=== PATIENT | male | born 1995 | race Caucasian/White ===

== ENCOUNTER 2019-06-24 15:11 | Emergency (ER) | payer OTHER ==
[~2019-06-24] VITALS: Ht 172.7 cm; Wt 69.8 kg
[~2019-06-24 15:11] MED LIST: CENTANY30 GM TP
[2019-06-24 16:12] LABS: INFLUENZA A ANTIGEN Negative (Negative); INFLUENZA B ANTIGEN Negative (Negative)
[2019-06-24] MEDS ORDERED: MEDROLDOSEPACK PO (16:39)
[2019-06-24 16:53] VITALS: BP 106/49
--- NOTE | 2019-06-26 13:58 | EKG ---
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: : 1995 Requested By: Aneta Sequeira Order Number: [id number] Chastity MD: Dago Dunham Measurements Intervals [place] Rate: 59 P: 67 DE: 153 QRS: 81 QRSD: 112 T: 59 QT: 394 QTc: 391 Interpretive Statements Sinus rhythm Probable left atrial enlargement Borderline intraventricular conduction delay Baseline wander in lead(s) V1,V2 No previous ECG available for comparison Electronically Signed On 06-26-2019 13:57:46 [employer] by Daog Dunham [email or web address] <ELECTRONICALLY SIGNED> By: Dago Dunham MD, [facility] 06/26/19 1357 16 16 Dago Dunham MD, FACC /EPI
== END 2019-06-24 16:55 | disposition home or self-care (01) ==
LOC: M.ERS 15:11
PROVIDERS: Personal Emergency Response Attendant
DX: J06.9 Acute upper respiratory infection, unspecified (principal); Z72.0 Tobacco use

== ENCOUNTER 2019-07-14 02:56 | Emergency (ER) | payer OTHER ==
[~2019-07-14] VITALS: Ht 175.3 cm; Wt 65.8 kg
[~2019-07-14 02:56] MED LIST changes: +MEDROLDOSEPACK PO
[2019-07-14 03:29] LABS: ABSOLUTE BASOPHILS 0.1 thou/uL (0.0-0.2); ABSOLUTE EOSINOPHILS 0.4 thou/uL (0.0-0.7); ABSOLUTE LYMPHOCYTES 3.2 thou/uL (0.8-5.3); ABSOLUTE MONOCYTES 0.9 thou/uL (0.0-1.2); ABSOLUTE NEUTROPHILS 4.5 thou/uL (1.6-8.1); BASOPHILS 0.6 %; EOSINOPHILS 4.3 %; HEMATOCRIT 38.2 % (42.0-52.0); HEMOGLOBIN 13.7 gm/dL (14.0-18.0); LYMPHOCYTES 35.5 %; MCH 30.1 pg (26.0-34.0); MCHC 35.9 g/dL (28.0-37.0); MCV 83.7 fL (80.0-100.0); MPV 7.2 fl. (7.2-11.1); NUCLEATED RBCS 0 /100WBC; PLATELET COUNT* 241 thou/uL (150-400); POLYS 49.6 %; RBC 4.57 mil/uL (4.50-6.00); RDW-CV 12.6 % (10.5-14.5); WBC 9.1 thou/uL (4.0-11.0)
[2019-07-14 03:37] LABS: CALCIUM 8.7 mg/dL (8.5-10.1); CREATININE 1.1 mg/dL (0.6-1.3); POTASSIUM 3.8 mmol/L (3.5-5.1)
[2019-07-14 03:42] LABS: ALBUMIN 3.9 g/dL (3.4-5.0); TOTAL BILIRUBIN 0.5 mg/dL (<0.1-1.0); TOTAL PROTEIN 7.1 g/dL (6.4-8.2)
[2019-07-14 05:08] LABS: INFLUENZA A ANTIGEN Negative (Negative); INFLUENZA B ANTIGEN Negative (Negative)
[2019-07-14] MEDS ORDERED: PROAIR HFA8.5 GM INH (05:58)
[2019-07-14] MEDS ORDERED: PREDNISONE50 MG PO (05:58)
[2019-07-14] MEDS ORDERED: PROMETH-CODEIN 65 ML PO (05:58)
[2019-07-14 06:27] VITALS: BP 99/54
== END 2019-07-14 06:27 | disposition home or self-care (01) ==
LOC: M.ERS 02:56
PROVIDERS: Emergency Medicine
DX: F41.9 Anxiety disorder, unspecified (principal); R05 Cough; Z91.013 Allergy to seafood